=== PATIENT | male | born 1980 | race Caucasian/White ===

== ENCOUNTER → 2016-03-08 | Outpatient (CLI) | payer OTHER ==
--- NOTE | 2016-03-16 15:48 | EEG Procedure Note ---
EEG Procedure Note Date of Service Mar 08, 2016. Start / End Times Start Time: 03/08/2016 at 1:40 PM End Time: 03/10/2016 at 2:11 PM Referring Physician RONY Wasserman History This is a 35-year-old male with episodes of visual changes, fatigue, and left numbness and tingling of the face. Ambulatory EEG for further evaluation of possible seizure etiology and spell capture. No home medications reported Description This is a 21 electrode ambulatory EEG with a single channel dedicated to limited EKG. The electrodes were placed in accordance with the International 10- 20 system. Technical factors limiting read and interpretation of EEG: Fp2 electrode artifact after 9 AM on March 09 T6 electrode artifact after 4 PM on March 09 and T4 electrode artifact after 11 PM on March 09 electrode artifact after 7 AM on March 10 At the start of the recording the patient was in an awake state. Background was well organized and composed of symmetric mixed alpha and beta frequencies. There was a symmetric well-formed moderate amplitude 10 Hz posterior dominant rhythm that was reactive to eye opening and closure. Sleep was indicated by vertex waves, symmetric sleep spindles, and slow wave sleep. No patient journal was returned. No clinical events reported. Interpretation This is a normal 48-hour ambulatory EEG. There was no electrographic seizures or epileptiform discharges. Clinical Correlation A normal EEG does not rule out epilepsy if there is a strong clinical suspicion or for clinical events not captured
== END | disposition home or self-care (01) ==
LOC: C.NEUR 13:15
PROVIDERS: ATTEND Nurse Practitioner Adult Health
DX: H53.9 Unspecified visual disturbance (principal); R20.2 Paresthesia of skin; R53.83 Other fatigue; R68.89 Other general symptoms and signs